=== PATIENT | female | born 1970 | race Caucasian/White ===

== ENCOUNTER 2020-04-13 02:24 | Inpatient (IN) ==
[2020-04-13] MEDS ORDERED: Ondansetron 4 MG/2 ML VIAL IVP PRN (07:34)
[2020-04-13] MEDS ORDERED: Naloxone 0.4 MG/ML INJ IVP PRN (07:34)
[2020-04-13] MEDS: 0.9 % Sodium Chloride 1,000 ML IVC SCH ×2 (08:14→17:39)
[2020-04-13 08:38] LABS: BUN/Creatinine Ratio 92 (6-26); Blood Urea Nitrogen 61 mg/dL (6-20); Calcium 8.4 mg/dL (8.6-10.3); Carbon Dioxide 20 mEq/L (23-29); Chloride 110 mEq/L (98-107); Glucose 124 mg/dL (70-105); Osmolality,Calculated 303 (280-300); Sodium 137 mEq/L (136-145); eGFR For African Americans > 60 (> 60); eGFR For Non-African Americans > 60 (> 60)
[2020-04-13 08:49] LABS: Basophils # 0.1 K/mcL (0.0-0.2); Basophils % 0.4 %; Eosinophils % 0.1 %; Hematocrit 31.6 % (35.3-44.9); Hemoglobin 10.9 g/dL (11.5-15.4); Immature Granulocytes % 1.2 % (0-4); Lymphocytes # 2.6 K/mcL (0.6-4.6); Lymphocytes % 15.5 %; Mean Corpuscular HGB Conc 34.5 g/dL (31.6-35.5); Mean Platelet Volume 9.8 fL (9.4-12.4); Monocytes # 1.8 K/mcL (0.0-1.3); Monocytes % 10.7 %; Platelet Count 207 K/mcL (140-400); Red Blood Count 3.76 M/mcL (3.82-4.97); Red Cell Distribution Width 12.2 % (11.5-14.5); Segmented Neutrophils % 72.1 %; White Blood Count 16.7 K/mcL (4.3-11.1)
[2020-04-13] MEDS: Pantoprazole 40 MG VIAL IVP SCH ×2 (09:10→17:40)
[2020-04-13 14:12] LABS: Hematocrit 31.1 % (35.3-44.9); Hemoglobin 10.3 g/dL (11.5-15.4)
[2020-04-13 20:10] LABS: Hematocrit 27.6 % (35.3-44.9); Hemoglobin 9.2 g/dL (11.5-15.4)
[2020-04-14] MEDS: Pantoprazole 40 MG VIAL IVP SCH ×2 (05:49→17:42)
[2020-04-14] MEDS ORDERED: *HR* FentaNYL (PF) 100 MCG/2 ML VIAL ONE (07:13)
[2020-04-14] MEDS ORDERED: *HR* Midazolam HCl 5 MG/5 ML VIAL IVP ONE ×2 (07:14→07:31)
[2020-04-14] MEDS ORDERED: *HR* FentaNYL (PF) 100 MCG/2 ML VIAL IVP ONE (07:31)
[2020-04-14] MEDS: Sucralfate 1 GM TABLET PO SCH ×4 (08:24→21:30)
[2020-04-14 09:53] LABS: Hematocrit 25.6 % (35.3-44.9); Hemoglobin 8.4 g/dL (11.5-15.4)
[2020-04-14] MEDS: Ringers Solution, Lactated 1,000 ML IVC SCH (17:18)
[2020-04-14 17:23] LABS: Hematocrit 25.2 % (35.3-44.9); Hemoglobin 8.5 g/dL (11.5-15.4)
[2020-04-15 03:34] LABS: Basophils # 0.1 K/mcL (0.0-0.2); Basophils % 0.8 %; Eosinophils # 0.3 K/mcL (0.0-0.6); Immature Granulocytes % 1.1 % (0-4); Lymphocytes # 3.4 K/mcL (0.6-4.6); Lymphocytes % 31.8 %; Mean Corpuscular HGB Conc 33.3 g/dL (31.6-35.5); Mean Corpuscular Hemoglobin 28.2 pg (28.0-33.3); Mean Corpuscular Volume 84.5 fL (83.0-100.0); Mean Platelet Volume 10.1 fL (9.4-12.4); Monocytes % 9.2 %; Neutrophils # 5.7 K/mcL (1.6-8.9); Platelet Count 166 K/mcL (140-400); Red Blood Count 2.84 M/mcL (3.82-4.97); Red Cell Distribution Width 12.3 % (11.5-14.5); Segmented Neutrophils % 54.1 %; White Blood Count 10.6 K/mcL (4.3-11.1)
[2020-04-15 03:51] LABS: BUN/Creatinine Ratio 26 (6-26); Blood Urea Nitrogen 14 mg/dL (6-20); Calcium 7.8 mg/dL (8.6-10.3); Carbon Dioxide 24 mEq/L (23-29); Chloride 106 mEq/L (98-107); Glucose 87 mg/dL (70-105); Osmolality,Calculated 282 (280-300); Sodium 136 mEq/L (136-145); eGFR For African Americans > 60 (> 60); eGFR For Non-African Americans > 60 (> 60)
[2020-04-15] MEDS: Pantoprazole 40 MG VIAL IVP SCH (05:27)
[2020-04-15] MEDS: Ringers Solution, Lactated 1,000 ML IVC SCH (05:27)
[2020-04-15] MEDS ORDERED: Potassium Chloride 40 MEQ, Lidocaine 1% 2 ML in 0.9 % Sodium Chloride 500 ML IVPB ONE (08:14)
[2020-04-15 08:32] LABS: Hematocrit 23.4 % (35.3-44.9); Hemoglobin 8.1 g/dL (11.5-15.4)
[2020-04-15] MEDS: Sucralfate 1 GM TABLET PO SCH ×2 (09:27→12:10)
[2020-04-15 11:17] VITALS: BP 120/62
== END 2020-04-15 14:42 | disposition home or self-care (01) | DRG 378 ==
LOC: CDU → SUATTDRO 04:21 → ICNU 06:36 → 3ANU 17:29 → SUATTDRO 04-14 16:17
PROVIDERS: ADMIT Internal Medicine; ATTEND Family Medicine